=== PATIENT | male | born 1985 | race American Indian/Alaskan Native ===

== ENCOUNTER 2021-08-29 00:53 | Emergency (ER) | payer SELFPAY ==
[2021-08-29 01:05] VITALS: BP 127/84
[2021-08-29] MEDS ORDERED: LIDOCAINE-MPF (1%) 10 MG/1 ML VIAL 5 ML INFILTRATI ONE (06:15)
[2021-08-29] MEDS ORDERED: oxyCODONE /ACETAMINOPHEN 5-325MG TAB PO ONE (06:15)
--- NOTE | 2021-08-29 06:25 | Emergency Department Report ---
<JOHSNON HOYT - Last Filed: 08/29/21 06:17> ED Male HPI - General Chief complaint: Urogenital-Male Stated complaint: LT TESTICAL PAIN Source: patient, EMS Mode of arrival: Ambulatory Limitations: No Limitations - History of Present Illness Initial comments: 35-year-old sacculated male presents emerged department complaining of possibility of STD exposure. Reports having unprotected sex with female and now reported left testicular pain which is sharp radiating up the testicle and associated with occasional dysuria with discharge upon urination. As of the last couple days he has been having some fever sensations but no chest pain, no hematuria, no hemoptysis no hematochezia, no nausea, no vomiting no constipation or diarrhea MD Complaint: testicle pain, penile discharge, dysuria -: Gradual - Related Data Previous Rx's Medication Instructions Recorded Last Taken Type DOXYCYCLINE Hyclate [Vibramycin] 100 mg PO Q12HR 7 Days #14 capsule 08/29/21 Unknown Rx Allergies Allergy/AdvReac Type Severity Reaction Status Date / Time No Known Allergies Allergy Verified 08/29/21 07:49 ED Review of Systems Comment: All other systems reviewed and negative ED Past Medical Hx - Past Medical History Previous Medical History?: No - Surgical History Past Surgical History?: No - Medications Home Medications: Home Medications Medication Instructions Recorded Confirmed Last Taken Type DOXYCYCLINE Hyclate [Vibramycin] 100 mg PO Q12HR 7 Days #14 capsule 08/29/21 Unknown Rx ED Physical Exam - General Limitations: No Limitations ED Disposition Clinical Impression: Urethritis, Testicular pain, left Disposition: 01 HOME / SELF CARE / HOMELESS Condition: Stable Instructions: Urethritis, Adult, Testicular Self-Exam, [id number] Additional Instructions: Take medications as prescribed. Follow-up with primary care provider or urology for further evaluation and management. Return to the emergency department as needed. Prescriptions: DOXYCYCLINE Hyclate [Vibramycin] 100 mg PO Q12HR 7 Days #14 capsule Referrals: NESHA SHAY MD [Referring] - 3-5 Days TITA ASIF MD [Staff Physician] - 3-5 Days Forms: STI Treatment and Prevention <DHEERAJ SIMMONS - Last Filed: 08/29/21 08:09> ED Male HPI - History of Present Illness Initial comments: 35-year-old black male presents to the emergency department for evaluation of left testicular pain since Saturday. He states that he has felt febrile and had some dysuria and penile discharge as well. He admits to having sex with multiple partners unprotected. He is unsure as to whether or not his partners have symptoms. He denies abdominal pain, shortness of breath, and nausea vomiting. ED Review of Systems ROS: Stated complaint: LT TESTICAL PAIN Other details as noted in HPI Constitutional: fever. denies: chills, malaise, weakness Respiratory: denies: cough, shortness of breath Cardiovascular: denies: chest pain, palpitations Gastrointestinal: denies: abdominal pain, nausea, vomiting, diarrhea, hematemesis, melena, hematochezia Genitourinary: dysuria, discharge, testicular pain. denies: urgency, frequency, hematuria, testicular mass (Left) Neurological: denies: headache, weakness ED Physical Exam - General General appearance: alert, in no apparent distress - Head Head exam: Present: atraumatic, normocephalic - Eye Eye exam: Present: normal appearance. Absent: conjunctival injection - Neck Neck exam: Present: normal inspection, full ROM. Absent: tenderness, lymphadenopathy - Respiratory Respiratory exam: Present: normal lung sounds bilaterally. Absent: respiratory distress, wheezes, rales, rhonchi, stridor, chest wall tenderness - Cardiovascular Cardiovascular Exam: Present: regular rate, normal heart sounds - GI/Abdominal GI/Abdominal exam: Present: soft, normal bowel sounds. Absent: distended, tenderness, guarding, rebound, rigid - exam: Present: testicular tenderness (Left side only). Absent: urethral discharge, scrotal swelling External exam: Present: normal external exam - Extremities Exam Extremities exam: Present: normal inspection, normal capillary refill. Absent: pedal edema, joint swelling, calf tenderness - Back Exam Back exam: Present: normal inspection. Absent: CVA tenderness (R), CVA tenderness (L) - Neurological Exam Neurological exam: Present: alert, oriented X3, normal gait - Psychiatric Psychiatric exam: Present: normal affect, normal mood - Skin Skin exam: Present: warm, dry, intact, normal color ED Course Vital Signs 08/29/21 01:01 Temperature 97.6 F Pulse Rate 80 Respiratory 17 Rate Blood Pressure 127/84 [Right] O2 Sat by Pulse 99 Oximetry ED Medical Decision Making - Radiology Data Radiology results: report reviewed Testicular ultrasound: FINDINGS -- RIGHT: TESTIS: Size = 4.1 x 1.8 x 3.1 cm. - Appearance: No significant abnormality. - Cyst / Mass: None. - Color Doppler Flow: No significant abnormality. EPIDIDYMIS: No significant abnormality. HYDROCELE: None. VARICOCELE: None demonstrated. FINDINGS -- LEFT: TESTIS: Size = 3.3 x 2.4 x 2.8 cm. - Appearance: No significant abnormality. - Cyst / Mass: None. - Color Doppler Flow: No significant abnormality. EPIDIDYMIS: No significant abnormality. HYDROCELE: None. VARICOCELE: None demonstrated. ADDITIONAL FINDINGS: None. IMPRESSION: 1. No evidence of testicular torsion. No specific abnormality of the testicles or epididymides. - Medical Decision Making 35-year-old black male presents to the emergency department for evaluation of left testicular pain since Saturday. He states that he has felt febrile and had some dysuria and penile discharge as well. He admits to having sex with multiple partners unprotected. He is unsure as to whether or not his partners have symptoms. He denies abdominal pain, shortness of breath, and nausea vomiting. Testicular ultrasound without any acute abnormalities noted, and urine positive for infection. Patient was preemptively treated for urethritis secondary to STI with 500 mg IM of Rocephin and doxycycline 100 mg twice a day for the next 7 days. He was given oxycodone 2 tablets and Toradol 10 mg p.o. in the emergency department to treat pain. He is advised to practice safe sex, notify partner so that they can be evaluated and treated, and follow-up with primary care provider or urology for further evaluation and management. He verbalized understanding of and agreement with plan of care. Critical care attestation.: If time is entered above; I have spent that time in minutes in the direct care of this critically ill patient, excluding procedure time. ED Disposition Is pt being admited?: No Does the pt Need Aspirin: No Time of Disposition: 07:42
[2021-08-29 06:32] LABS: Bilirubin,Urine NEG (Negative); Blood,Urine LG (Negative); Color,Urine Yellow (Yellow); Mucus,Urine 3+ /HPF; Urobilinogen,Urine < 2.0 mg/dL (<2.0)
[2021-08-29 06:39] LABS: WBC,Urine > 182.0 /HPF (0.0-6.0)
--- NOTE | 2021-08-29 07:30 | Ultrasound Report ---
ULTRASOUND SCROTUM INDICATION / CLINICAL INFORMATION: left testicular pain. COMPARISON: None available. FINDINGS -- RIGHT: TESTIS: Size = 4.1 x 1.8 x 3.1 cm. - Appearance: No significant abnormality. - Cyst / Mass: None. - Color Doppler Flow: No significant abnormality. EPIDIDYMIS: No significant abnormality. HYDROCELE: None. VARICOCELE: None demonstrated. FINDINGS -- LEFT: TESTIS: Size = 3.3 x 2.4 x 2.8 cm. - Appearance: No significant abnormality. - Cyst / Mass: None. - Color Doppler Flow: No significant abnormality. EPIDIDYMIS: No significant abnormality. HYDROCELE: None. VARICOCELE: None demonstrated. ADDITIONAL FINDINGS: None. IMPRESSION: 1. No evidence of testicular torsion. No specific abnormality of the testicles or epididymides. Signer Name: Alex Pierce II, MD Signed: 08/29/2021 7:26 AM Workstation Name: [id number]
[2021-08-29] MEDS ORDERED: KETOROLAC 10 MG TAB PO ONE (07:35)
== END 2021-08-29 08:13 | disposition home or self-care (01) ==
LOC: ED 00:53
DX: N50.812 Left testicular pain (principal); Z79.899 Other long term (current) drug therapy
CPT/HCPCS: 81001; 93975; 96372; 99284; J0696; J3490

== ENCOUNTER 2021-09-20 09:43 | Emergency (ER) | payer SELFPAY ==
[2021-09-20] MEDS ORDERED: ZIPRASIDONE MESYLATE 20 MG VIAL IM ONE (09:52)
[2021-09-20] MEDS ORDERED: WATER FOR INJ Sterile (PF) 10 ML ONE (09:57)
--- NOTE | 2021-09-20 11:37 | Emergency Department Report ---
ED General Adult HPI - General Chief complaint: Psych Stated complaint: EVLAUATION/ABDOMINAL Time Seen by Provider: 09/20/21 09:52 Source: patient, EMS Mode of arrival: Stretcher Limitations: No Limitations - History of Present Illness Initial comments: This is a 36-year-old male brought in by EMS with concerns of possible substance abuse. The following conversation was witness by security guards. According to patient he has been up in his room for the past 2 weeks watching documentary YouTube's regarding and states he has also seen people. Patient endorses suicidal ideation in the past and also currently. When asked if patient wants to hurt anybody else he also states yes. Patient also endorsed visual hallucination where he is seeing people but he is not clear if he is having auditory hallucination. Patient is easily off topic during conversation and does become argumentive during encounter. - Related Data Previous Rx's Medication Instructions Recorded Last Taken Type DOXYCYCLINE Hyclate [Vibramycin] 100 mg PO Q12HR 7 Days #14 capsule 08/29/21 Unknown Rx Allergies Allergy/AdvReac Type Severity Reaction Status Date / Time No Known Allergies Allergy Verified 09/20/21 09:57 ED Review of Systems ROS: Stated complaint: EVLAUATION/ABDOMINAL Other details as noted in HPI Comment: All other systems reviewed and negative Psychiatric: visual hallucinations, homicidal thoughts, suicidal thoughts. denies: auditory hallucinations ED Past Medical Hx - Past Medical History Previous Medical History?: Yes Hx Psychiatric Treatment: Yes - Social History Smoking Status: Unknown if ever smoked - Medications Home Medications: Home Medications Medication Instructions Recorded Confirmed Last Taken Type DOXYCYCLINE Hyclate [Vibramycin] 100 mg PO Q12HR 7 Days #14 capsule 08/29/21 Unknown Rx ED Physical Exam - General Limitations: No Limitations General appearance: alert, in no apparent distress, other (Easily off topic.) - Head Head exam: Present: atraumatic, normocephalic, normal inspection - Eye Eye exam: Present: normal appearance, PERRL, EOMI Pupils: Present: normal accommodation - ENT ENT exam: Present: normal exam, mucous membranes moist - Neck Neck exam: Present: normal inspection, full ROM - Respiratory Respiratory exam: Present: normal lung sounds bilaterally - Cardiovascular Cardiovascular Exam: Present: regular rate, normal rhythm, tachycardia, normal heart sounds - GI/Abdominal GI/Abdominal exam: Present: soft - Extremities Exam Extremities exam: Present: normal inspection, full ROM, normal capillary refill - Back Exam Back exam: Present: normal inspection, full ROM - Neurological Exam Neurological exam: Present: oriented X3 - Psychiatric Psychiatric exam: Present: agitated, manic, homicidal ideation, suicidal ideation - Skin Skin exam: Present: normal color ED Course Vital Signs 09/20/21 09/20/21 09:55 10:26 Temperature 98.2 F Pulse Rate 117 H Blood Pressure 120/90 [Left] O2 Sat by Pulse 100 97 Oximetry Critical care attestation.: If time is entered above; I have spent that time in minutes in the direct care of this critically ill patient, excluding procedure time. ED Disposition Condition: Stable
--- NOTE | 2021-09-20 11:54 | Consultation ---
History of Present Illness - Reason for Consult Consult date: 09/20/21 Reason for consult: psychosis - History of Present Psychiatric Illness HPI: This is a 36-year-old male brought in by EMS with concerns of possible substance abuse. The following conversation was witness by security guards. According to patient he has been up in his room for the past 2 weeks watching documentary YouTube's regarding and states he has also seen people. Patient endorses suicidal ideation in the past and also currently. When asked if patient wants to hurt anybody else he also states yes. Patient also endorsed visual hallucination where he is seeing people but he is not clear if he is having auditory hallucination. Patient is easily off topic during conversation and does become argumentive during encounter. The patient was seen today. He is not a patient known to me before. During the evaluation, the patient is in the seclusion room. The patient is acutely psychotic. It is unclear if he is chemically impaired by some substance, as his drug screen is not resulted. The patient has poor insight due to his psychosis. His thought process is illogical, he is speaking nonsensically, he is difficult to follow. He is unable to answer questions with direct answers. He is anxious, and suspicious. He is tearful at times. I ask the patient if he has any history of psych disorders. He says yes, but could not tell me what they were. The patient starts by saying that he feels pressured by everyone. He says "like right now, I feel very pressured and agitated." The patient then says "I've been going through transformations, changes, a lot of temptation and agony." He becomes tearful and says "I'm trying to figure this out." I ask him what was he trying to figure out. He becomes upset and says "I don't know. Everybody keeps asking me how I feel. 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 I ask the patient if he has family, he says "it's not about my family. I love people and they love me." He then says "I'm not here for medical. I'm not suicidal or homicidal." He says "I can't explain what I'm feeling." The patient denies illicit drug use, or alcohol disorder. He says "no, no drugs. Just do that. Just leave me alone." Will recommend inpatient psychiatric inpatient treatment for stabilization and start patient and start medication. PSYCH HISTORY Diagnoses: could not recall Suicide attempts or Self-harm behavior: would not answer Prior psychiatric hospitalizations: would not answer Substance Abuse history: denies Previous psychiatric medications tried: denies Outpatient treatment: would not answer PAST MEDICAL HISTORY: Denies Family Psychiatric History: None reported or documented SOCIAL HISTORY unable to assess REVIEW OF SYSTEMS Constitutional: Negative for weight loss ENT: Negative for stridor Respiratory: Negative for cough or hemoptysis All other systems reviewed and are negative MENTAL STATUS EXAMINATION General Appearance and Behavior: Age appropriate, anxious, suspicious, cooperative Cooperation: Participating/engaged, Psychomotor Behavior: psychomotor retardation Mood: agitated, pressured Affect and affective range: tearful, congruent with stated mood Thought Process: illogical, impaired Thought Content: hallucinations Speech: nonsensical Suicidal Ideation: Denies Homicidal Ideation: Denies Hallucination:auditory Delusions: Yes, suspicious, paranoid Impulse Control: Impaired Insight and Judgment: Poor insight and poor judgment, Memory: Poor Attention: Divided Orientation: Alert, oriented Assessment and Plan (1) Delusional Disorder Current Visit: Yes Status: Acute Treatment Plan 1013 Risperidone 0.5mg po BID Vistaril 50mg po BID Doxepin 10mg po qhs Depakote DR 125mg po BID Geodon 20mg IM q4h prn agitation Risks, benefits and alternatives of medications discussed with the patient, questions answered and consent obtained from patient. PSYCHOTHERAPY: Supportive psychotherapy provided MEDICAL: Per primary team DELIRIUM PRECAUTIONS: Please re-orient patient frequently, keep lights on during the day, and minimize benzodiazepines and opiates as these medications could worsen patient's confusion. CONSERVATION WORKER: per primary DISPOSITION: recommend acute psychiatric inpatient treatment FOLLOW-UP: Will follow Thank you for the consult. Please contact with any questions and/or concerns. Case staffed with Dr. Shi Medications and Allergies Allergies Allergy/AdvReac Type Severity Reaction Status Date / Time No Known Allergies Allergy Verified 09/20/21 09:57 Home Medications Medication Instructions Recorded Confirmed Last Taken Type DOXYCYCLINE Hyclate [Vibramycin] 100 mg PO Q12HR 7 Days #14 capsule 08/29/21 Unknown Rx Mental Status Exam - Vital signs Last Vital Signs Temp 98.2 F 09/20/21 09:55 Pulse 117 H 09/20/21 09:55 Resp BP 120/90 09/20/21 09:55 Pulse Ox 97 09/20/21 10:26 Results All other labs normal.
[2021-09-20] MEDS ORDERED: ZIPRASIDONE MESYLATE 20 MG VIAL IM PRN (13:30)
[2021-09-20] MEDS: DIVALPROEX DR 125 MG TAB PO SCH (14:54)
[2021-09-20] MEDS: risperiDONE 0.25 MG TAB PO SCH (14:54)
[2021-09-20 21:17] LABS: Hematocrit 43.9 % (35.5-45.6); Mean Corpuscular HGB Conc 34 % (32-34); Mean Corpuscular Volume 92 fl (84-94); Red Blood Count 4.78 M/mm3 (3.65-5.03); Red Cell Distribution Width 12.5 % (13.2-15.2)
[2021-09-20 21:27] LABS: Platelet Count 156 K/mm3 (140-440)
[2021-09-20 21:43] LABS: Alanine Aminotransferase 24 units/L (7-56); Albumin 4.7 g/dL (3.9-5); BUN/Creatinine Ratio 11; Blood Urea Nitrogen 12 mg/dL (9-20); Calcium 9.6 mg/dL (8.4-10.2); Hemolysis Index 15
[2021-09-20] MEDS ORDERED: DOXEPIN 10 MG CAP PO SCH (22:00)
[2021-09-20 22:12] LABS: Benzodiazepines Screen,Urine Negative; Cannabinoid Screen,Urine Negative; Cocaine Screen,Urine Negative; Methadone Screen,Urine Negative; Opiate Screen,Urine Negative
[2021-09-20 22:32] LABS: Amphetamine Screen,Urine Positive
[2021-09-21] MEDS: DIVALPROEX DR 125 MG TAB PO SCH ×2 (01:52→09:51)
[2021-09-21] MEDS: risperiDONE 0.25 MG TAB PO SCH ×2 (01:53→09:52)
[2021-09-21 09:14] VITALS: BP 139/85
--- NOTE | 2021-09-21 10:06 | Progress Note ---
Subjective - Reason for Consult Consult date: 09/21/21 Reason for consult: Psychosis - Chief Complaint Chief complaint: The patient was seen today. He presents much better than yesterday. He is calm, cooperative and conversations. The patient is lucid. The patient says he feels better and not sure what happened yesterday. He denies any illicit drug use, but he's positive for methamphetamines which was likely the cause of his psychosis yesterday. The patient today, is optimist and discusses his plan for the future. He says he is from [place] and came here to live with his sister after being released from residential. He says his sister then later moved back to [place]. The patient says it left him here with no family or support system. He says he typically works and gets paid day to day, but no real employment. The patient says his plan is to get a job and get back to [place] where his support system is. He says he plan to write a book. I also discussed with the patient possible trades, like going to commercial trailer truck driver school. He says he's thought about that and is going to put things in motion to get on his feet. The patient says right now he's homeless, but would like resources to go to a group home. He says "I don't think that going to another hospital would help me because I've never had any issues with my mind like this." The patient denies SI/HI. He says "never wanted to hurt myself or do nothing like that." He also denies hallucinations of any k ind. He thanks me at the end of the evaluation. REVIEW OF SYSTEMS Constitutional: Negative for weight loss ENT: Negative for stridor Respiratory: Negative for cough or hemoptysis All other systems reviewed and are negative MENTAL STATUS EXAMINATION General Appearance and Behavior: Age appropriate, calm, cooperative polite. Cooperation: Participating/engaged, Psychomotor Behavior: psychomotor normal Mood: better Affect and affective range: congruent with stated mood Thought Process: goal directed Thought Content: None Speech: Normal tone and pace Suicidal Ideation: Denies Homicidal Ideation: Denies Hallucination: Denies Delusions: None elicited Impulse Control: Normal Insight and Judgment: Normal insight and poor judgment, Memory: Limited Attention: Attentive Orientation: Alert, oriented Assessment and Plan (1) Methamphetamine Induced Psychosis (2) Delusional Disorder Treatment Plan d/c 1013 Risperidone 0.5mg po BID Vistaril 50mg po BID Doxepin 10mg po qhs Depakote DR 125mg po BID Risks, benefits and alternatives of medications discussed with the patient, questions answered and consent obtained from patient. PSYCHOTHERAPY: Supportive psychotherapy provided MEDICAL: Per primary team DELIRIUM PRECAUTIONS: Please re-orient patient frequently, keep lights on during the day, and minimize benzodiazepines and opiates as these medications could worsen patient's confusion. HOSPITAL RECRUITER: per primary DISPOSITION: Do not recommend acute psychiatric inpatient treatment The bull chain operator to give the patient all necessary resources including group home, and group homes The patient should follow up with outpatient psych in 7 to 14 days upon discharge FOLLOW-UP: Will sign off Thank you for the consult. Please contact with any questions and/or concerns. Case staffed with Dr. Shi Mental Status Exam - Vital signs Last Vital Signs Temp 98.2 F 09/21/21 09:13 Pulse 82 09/21/21 09:13 Resp 18 09/21/21 09:13 BP 139/85 09/21/21 09:13 Pulse Ox 99 09/21/21 09:13
--- NOTE | 2021-09-21 11:33 | Emergency Department Report ---
Blank Doc - Documentation Documentation: Medical record reviewed 36-year-old male presents with acute psychosis likely secondary to methamphetamine induced psychosis. Patient has refused psychiatric meds during ED stay. He has been cleared by mental health for discharge with meds and follow
== END 2021-09-21 11:33 | disposition home or self-care (01) ==
LOC: ED 09:43 → EEVIPCON 09:43 → ED 09-21 11:33
DX: R45.851 Suicidal ideations (principal); R46.2 Strange and inexplicable behavior; Z79.899 Other long term (current) drug therapy; Z20.822 Contact with and (suspected) exposure to COVID-19
CPT/HCPCS: 36415; 80053; 80307; 85027; 99284; J3486; U0003; 80320; G0480; Q0177